=== PATIENT | female | born 1940 | race Caucasian/White ===

== ENCOUNTER 2016-12-25 07:22 | Day surgery (SDC) | payer MEDICARE, OTHER ==
[2016-12-25] VITALS (8 sets, daily range): BP systolic 134–186; BP diastolic 55–96; PULSE 89–100; RESP 16–20; O2SAT 95–99
[~2016-12-25] VITALS: Ht 162.6 cm; Wt 79.4 kg
[~2016-12-25 07:22] MED LIST: CREST10T PO; calcium; fiber; stool softener
[2016-12-25] MEDS ORDERED: EPHEDrine/NS 5 mg/mL 5 mL Syringe ONE (07:23)
[2016-12-25] MEDS ORDERED: Succinylcholine Chloride 20 mg/mL 5 mL Inj ONE (07:23)
[2016-12-25] MEDS ORDERED: fentaNYL-PF 50 mCg/mL 2 mL Inj ONE (07:23)
[2016-12-25] MEDS ORDERED: Ondansetron 2 mg/mL 2 mL Inj ONE (07:23)
[2016-12-25] MEDS ORDERED: Dexamethasone 4 mg/mL Inj ONE (07:23)
[2016-12-25] MEDS ORDERED: Lidocaine PF 1% 30 mL Inj ONE (07:23)
[2016-12-25] MEDS ORDERED: Propofol 10,000 mCg/mL 20 mL Inj ONE (07:23)
[2016-12-25] MEDS ORDERED: FIBE1TAB4 PO (07:58)
[2016-12-25] MEDS ORDERED: CALC600T12 PO (07:58)
[2016-12-25] MEDS ORDERED: DOCU-41 PO (07:58)
[2016-12-25] MEDS: Lactated Ringer's 1,000 ML IV SCH ×2 (08:00→10:42)
--- NOTE | 2016-12-25 10:08 | PCM.HPANE ---
Patient Data Date of Service: Dec 25, 2016 Surgeon Admitting Provider: Attending Provider:Jarod Nuno MD Primary Care Physician:Yvonne Martino Other Provider:Jeet Goncalves Anesthesia Reason for Visit Primary Hyperparathyroidism Ht/WT & BMI Height (Feet): 5 Height (Inches): 4.00 Weight (Kilograms): 79.380 Body Mass Index 29.00 Allergies Coded Allergies: No Known Allergies (Unverified , 12/23/16) Past Anesthesia History Anesthesia History: Denies:: Anesthesia Reactions Diabetes History Hx Diabetes?: No Medications Blood Thinner: Aspirin Hypertension Medication: Yes Home Meds Incl Beta Jerald: No Reported Medications Bran/Gum/Fib/Zee/Psyl/Kelp/Pec (Fiber 6 Tablet)1,000 Mg Tablet1,000 Mg PO DAILY 12/25/16 Docusate Sodium (Colace)100 Mg [id number] Mg PO DAILY PRN For Constipation Ref 0 12/25/16 Calcium Carbonate (Calcium)600 Mg Tgohgc188 Mg PO BID 12/25/16 Rosuvastatin Calcium (Crestor)10 Mg Twzflt71 Mg PO Q2DAY 30 Days Ref 0 12/23/16 Discontinued Reported Medications Nitroglycerin SL (Nitrostat)0.4 Mg Tab.subl0.4 Mg SL Q5MIN PRN For Chest Pain # 1 BOTTLE 12/23/16 Metoprolol Tartrate 25 Mg Tggobz15 Mg PO BID 30 Days Ref 0 12/23/16 Metformin 500 Mg Ffaiid431 Mg PO BID Ref 0 12/23/16 Lisinopril 10 Mg Bjtmsd32 Mg PO DAILY 30 Days Ref 0 12/23/16 Aspirin 81 Mg Ailbfq22.5 Mg PO DAILY Ref 0 12/23/16 History History of ENT Problems?: No Hx of Heart Problems?: Yes Cardiovascular History: Positive for:: Cardiac Surgery (remote hx of cardiac stents- 7-10 years ago) Hypertension Hx of Respiratory Problem?: No Respiratory History: Denies:: Asthma COPD Emphysema Oxygen Administration Pneumonia Tuberculosis Use of C-PAP Machine Hx Neurologic Problems?: No Neurological History: Denies:: CVA Multiple Sclerosis Parkinson's Disease Seizures Hx of GI Problems?: Yes Other GI Pertinent History: past hx bariatric surgery Female Hx: Denies:: Currently Hx Musculoskeletal Problems?: Yes Musculoskeletal History: Positive for:: Back Injury (hx of verterbral compression fx) Joint Replacement (right hip) Osteoarthritis Hx of Psycho/Social Problems?: No Hx Surgeries?: Yes (bariatric, right hip replacement) Hx Any Other Health Problems?: Yes Other History: Positive for:: Thyroid Disease (hyperparathyroid current admission problem) Denies:: Cancer Hx Diabetes: No Hx Alcohol Use: YesAlcoholic Drinks Per Day: occ wineHx Substance Use: No Have You Smoked inLast 12 mo: No Stop/Bang S-Snoring: Do You Snore Loudly: Yes T-Tired: feel tired, fatigued: No O-Obsered: Observed not breath: No P-Blood Pressure: treated: Yes B- Body Mass Index > 35 kg/m2: No A- Age over 50: Yes N- Neck Large Circumference: No G- Gender Male: No TYSON Total Score: 3 TYSON Risk Assessment: Low Risk, <3 Yes Risk Assessment Category Category 1A: Patient has history of documented sleep apnea, and HAS NOT received any narcotic, sedative or anesthesia administration during this stay. Category 1B: Patient has history of documented sleep apnea, and HAS received any narcotic , sedative or anesthesia administration during this stay Category 2: Patient has SUSPECTED Obstructive Sleep Apnea, and HAS received any narcotic , sedative or anesthesia administration during this stay. Category 3: Patient has SUSPECTED Obstructive Sleep Apnea and HAS NOT received narcotic, sedative or anesthesia administration during this stay. Category 4: Outpatient in Procedural Areas with known sleep apnea or who screen positive for High Risk via the STOP/BANG questionnaire. Exam Exam Vital Signs Vital Signs Date Time Temp Pulse Resp B/P Pulse Ox O2 Delivery O2 Flow Rate FiO2 12/25/16 08:30 36.3 100 16 147/66 99 Room Air General Appearance: Alert, Oriented X3, Cooperative, No Acute Distress HEENT/AIRWAY: MP 2, Neck Movement (normal), Mouth Opening (normal) Lungs: Clear to Auscultation, Normal Air Movement Heart: Exam Unremarkable, Regular Rate/Rhythm, No Murmurs/Rubs/Gallops Meds/Labs/Diagnostics Admission Meds Current Medications Lactated Ringer's (Lr) 1,000 ml @ 120 mls/hr Q8H20M IV Last administered on t 08:00; Start 12/25/16 at 05:00; Stop 12/25/16 at 13:19 Plan Impression Patient chart reviewed, patient interviewed and anesthestic plan with risks, benefits, and alternatives discussed, and informed consent obtained. NPO Status: 1700 12/24 ASA Physical Status: ASA2 Mod Systemic Disease Anesthetic Plan: GA Bene/Risks/Altern/Consents: Yes HP Complete Prior to Induction: Yes Alejandro Aldridge MD Dec 25, 2016 10:08
[2016-12-25] MEDS ORDERED: Lactated Ringer's 500 ML IV PRN (10:22)
[2016-12-25] MEDS ORDERED: Lactated Ringer's 1,000 ML IV SCH (10:22)
[2016-12-25] MEDS ORDERED: fentaNYL-PF 50 mCg/mL 2 mL Inj IVPUSH PRN (10:25)
[2016-12-25] MEDS ORDERED: EPHEDrine Sulfate 50 mg/mL Inj IVPUSH PRN (10:25)
[2016-12-25] MEDS ORDERED: HYDROmorphone 1 mg/mL Inj IVPUSH PRN (10:25)
[2016-12-25] MEDS ORDERED: MetoCLOpramide 5 mg/mL 2 mL Inj IVPUSH PRN (10:25)
[2016-12-25] MEDS ORDERED: Ondansetron 2 mg/mL 2 mL Inj IVPUSH PRN (10:25)
[2016-12-25] MEDS ORDERED: hydrALAZINE 20 mg/mL Inj IVPUSH PRN (10:25)
[2016-12-25] MEDS ORDERED: Phenylephrine 10,000 mCg/mL Inj IVPUSH PRN (10:25)
[2016-12-25] MEDS ORDERED: Atropine 0.4 mg/mL Inj IVPUSH PRN (10:25)
[2016-12-25] MEDS ORDERED: Labetalol 5 mg/mL 4 mL Inj IV PRN (10:25)
[2016-12-25] MEDS ORDERED: Bupivacaine-MPF 0.25%/EPI 30 mL Inj INFILTRATE ONE (10:42)
--- NOTE | 2016-12-25 11:21 | PCM.ANEP1 ---
Post Anesthesia Phase 1 PACU Phase 1 Assessment Date of Service: Dec 25, 2016 Vital Signs 37 186/96 99 16 94% RA Anesthetic Administered: GA Level of Alertness: Awake, talking GLEASON's with Equal Strength: Yes Pain: No Nausea or Vomiting: Yes Oxygen Delivery: Room Air Lungs: Clear to Auscultation, Normal Air Movement Alejandro Aldridge MD Dec 25, 2016 11:21
--- NOTE | 2016-12-25 11:37 | DRSVH ---
PROCEDURE: NM PARATHYROID IMAGING W/SPECT ([id number]) RADIOPHARMACEUTICAL: 10.9 mCi Tc-99m sestamibi IV. INDICATIONS: PRIMARY HYPERPARATHYROIDISM TECHNIQUE: 10.9 mCi Tc-99m sestamibi was injected intravenously. No images were obtained. COMPARISON: [facility], CT, CT PARATHYROID W&WO CON, 12/18/2016, 10:55. FINDINGS: Technetium 99m sestamibi injection for parathyroid adenoma localization. IMPRESSION: Technetium 99m sestamibi injection only. Dictated by: Pradeep Wiley M.D. on 12/25/2016 at 11:35 Approved by: Pradeep Wiley M.D. on 12/25/2016 at 11:36
--- NOTE | 2016-12-25 11:46 | OP ---
[address] [address] OPERATIVE REPORT PATIENT: AKILAH MCMAHON : 1940 MR#: [id number] ADMIT: 12/25/2016 JOB ID: [id number] DATE OF SURGERY: 12/25/2016 ANESTHESIA: General. PREOPERATIVE DIAGNOSIS(ES): Primary hyperparathyroidism. POSTOPERATIVE DIAGNOSIS(ES): Primary hyperparathyroidism. OPERATIVE PROCEDURE: Minimally invasive parathyroidectomy using gamma probe for confirmation. SURGEON: Dr. Jarod Nuno. CONCRETE SMOOTHER: Ajith Acosta MD (the statistical assistant was required for the safe and timely completion of the case) and DAVID Song. COMPLICATIONS: None. ESTIMATED BLOOD LOSS: 1 mL. CONDITION: Satisfactory. SPECIMEN: Left superior parathyroid adenoma. FINDINGS: There was an approximately 15 x 10 x 10 mm adenoma in the typical location for a left superior adenoma, this corresponding to the sestamibi and CT findings. Background gamma probe reading was 355. The ex vivo count was 246, confirming the diagnosis. INDICATIONS/SIGNIFICANT HISTORY: The patient is a 76-year-old female with a history of elevated calcium which has been monitored since 2012. She was subsequently found to have elevated PTH. She has mild renal dysfunction and also has developed vertebral compression fractures. She was referred to co and preoperative localization including a sestamibi scan and a CT scan suggested a left superior adenoma. The CT scan also showed bilateral thyroid nodules. Due to logistical issues with the patient, it was not possible to get a preoperative ultrasound of those. The plan was to biopsy them intraoperatively if they were easily accessible. However, they were not clearly identified during the case. OPERATIVE TECHNIQUE: The patient was taken into the operating room after receiving 10 millicuries of sestamibi injection in the preop holding area. She was placed in the supine position and general anesthesia was administered. The neck was prepped and draped in a standard surgical fashion and a procedural pause performed. I began with a 2 cm transverse cervical incision about 1 cm below the cricoid cartilage. Dissection was carried down through the skin and subcutaneous tissue. Local anesthetic had been injected. Superior and inferior subplatysmal flaps were then raised. The midline fascia was incised and the left strap muscles were then elevated sequentially. The left lobe of the thyroid was then medialized and the adenoma immediately encountered. This easily shelled out with minimal blunt dissection. There is a single pedicle which was controlled with bipolar cautery. Background and ex vivo counts were obtained with findings as above. The surgical bed was then inspected and found to be hemostatic. Valsalva was performed and again remained hemostatic. The strap muscles were reapproximated with a running 3-0 Vicryl. Platysma was closed with interrupted 3-0 Vicryl. Skin was closed using 4-0 Monocryl. Dermabond was applied. The entire procedure was well tolerated without complication. EDUARDO
--- NOTE | 2016-12-25 12:11 | PCM.ANEP2 ---
Post Anesthesia Evaluation ASA/CMS Post Anesthesia Date of Service: Dec 25, 2016 VS in Patient's Normal Range?: Yes Resp Stable; Airway Patent?: Yes CV Function & Hydration Stable: Yes Mental Status Recovered?: Yes Pain control Satisfactory?: Yes N/V Control Satisfactory?: Yes Alejandro Aldridge MD Dec 25, 2016 12:11
--- NOTE | 2016-12-29 17:14 | PATH ---
SURGICAL PATHOLOGY Attending Physician:Jarod Nuno MD CASE STATUS: Signed Out PATIENT NAME: AKILAH MCMAHON PID: [id number] : 1940 DATE COLLECTED:12/25/2016 21:20 SPECIMEN: Parathyroid Gland CLINICAL HISTORY: PRIMARY HYPERPARATHYROIDISM 1). LEFT SUPERIOR PARATHYROID ADENOMA FINAL DIAGNOSIS: 1.PARATHYROID GLAND, LEFT SUPERIOR, PARATHYROIDECTOMY: HYPERCELLULAR PARATHYROID TISSUE CONSISTENT WITH BENIGN PARATHYROID ADENOMA. ICD10 CODE D35.1 GROSS DESCRIPTION: The specimen is received in formalin, labeled with the patient's name, sublabeled as left superior parathyroid adenoma and consists of a south-yellow smooth shiny rubbery parathyroid gland (0.8 g, 2.3 x 1.1 x 0.7 cm). The parenchyma is south-yellow semi-translucent and homogenous. Section code: (A-B) parathyroid gland, serially sectioned. Specimen entirely submitted. 12/27/16 JM MICRO DESCRIPTION: See diagnosis. ICD-9 CODES: CPT CODES: 1: 64549 Electronically Signed Out Karol Dc MD [facility] [address], [place] [address] Technical component performed at [facility], [facility] [address], [place], [address]
== END 2016-12-25 23:59 | disposition home or self-care (01) ==
LOC: SAS 07:22
PROVIDERS: ATTEND General Practice
DX: E21.0 Primary hyperparathyroidism (principal); I10 Essential (primary) hypertension; E11.9 Type 2 diabetes mellitus without complications; I25.10 Atherosclerotic heart disease of native coronary artery without angina pectoris; M81.0 Age-related osteoporosis without current pathological fracture; Z79.82 Long term (current) use of aspirin; Z79.84 Long term (current) use of oral hypoglycemic drugs; Z98.84 Bariatric surgery status; Z96.641 Presence of right artificial hip joint
CPT/HCPCS: 36415; 60500; 78808; 82310; 83970; 88305; A9500; J0330; J1100; J2250; J2405; J3010; J7120